=== PATIENT | male | born 1990 | race Caucasian/White ===

== ENCOUNTER 2018-02-09 18:45 | Emergency (ER) | payer OTHER, SELFPAY ==
[2018-02-09 18:46] VITALS: PULSE 133; RESP 13; O2SAT 98
[2018-02-09 18:47] VITALS: BP 130/69; PULSE 135; RESP 18; TEMP 39.2; O2SAT 98; BMI 26.6
--- NOTE | 2018-02-09 18:47 | ED.RN ---
NO OLD EKGS IN MUSE
--- NOTE | 2018-02-09 19:03 | EKG12_ITS ---
Test Reason : CP Blood Pressure : / mmHG Vent. Rate : 130 BPM Atrial Rate : 130 BPM P-R Int : 160 ms QRS Dur : 090 ms QT Int : 298 ms P-R-T Axes : 031 054 027 degrees QTc Int : 438 ms Sinus tachycardia Otherwise normal ECG Confirmed by ISRRAEL PERRY, LONG ([id number]), editor farm journal NANDINI ASHLEY ([id number]) on 02/11/2018 2:14:46 PM Referred By: BRITTANY Confirmed By:LONG ARCOS MD
--- NOTE | 2018-02-09 19:07 | ED.DCSUM_ITS ---
- ER Visit Summary Date of Service: 02/09/18 Chief Complaint: Chest pain and cough History of Present Illness: The patient is a [address] Avitia. Reports that he has left-sided chest pain again 830 this morning. Is a sharp, constant pain. 5 out of 10 currently and 10 out of 10 at worst. It is decreased with laying down or sitting down. Is worsened by walking around. Reports he has a cough that began at 10:00 this morning. Is nonproductive. Reports that he has a fever that began approximately 1:00 this afternoon. He denies any sore throat. Complains of a headache is 3 out of 10 severity. He has had similar headaches previously. He also complains of diffuse myalgias. Physical Examination: Vitals: 102.5, 130/69, 135, 18, 100% on room air which is not hypoxic. General: Well-nourished and well-developed. Head: Normocephalic atraumatic. Neck: Supple, no lymphadenopathy. No JVD. Nontender. Pharyngeal erythema. No tonsillar exudate or enlargement. No peritonsillar abscess. Cardiovascular: Tachycardic regular rhythm. No murmurs. Respiratory: No respiratory distress. Clear to auscultation bilaterally. Chest is nontender. Abdominal: Soft, nontender, nondistended, normal bowel sounds. No guarding, rebound, or peritoneal signs. Back: Nontender. Extremities: Nontender, no edema. Skin: Normal color, no rash. Neurologic: Alert and oriented ?3. Cranial nerves II through XII are intact. Normal strength and sensation. Psych: Normal affect. Test Results: EKG is sinus tachycardia [address] changes. CBC is remarkable for a white count of 13.8 with 85 segmented neutrophils and 11 lymphocytes. Chem-7 is normal. Chest x-ray is normal. Lactic acid is 1.4. Influenza is negative. Emergency Department Course and Treatment: Patient had an IV placed. He is given a liter normal saline. He was given Toradol IV and Zofran IV. Is given Tylenol p.o. He is resting comfortably. On repeat exam patient feels much improved. Treatment Plan: Patient will be discharged symptomatic care. Push fluids. Alternate Tylenol and ibuprofen. Follow-up with his primary care physician in 1 week if not improving. Return to the emergency department for any worsening symptoms. Disposition: To home in improved and stable condition. Impression: 1. URI. This note was generated with [employer] dictation software. It may contain incorrect words, spelling, and punctuation that were not noted in review of the chart prior to signing ED Disposition - Plan for ED Patient: Disposition: Home or Assisted Living Chief Complaint: Chest Pain Instructions: ED Upper Resp Infec No Abx Tx Referrals: Bola Avitia [Primary Care Provider] - 1 Week if not improving
[2018-02-09 19:15] LABS: Absolute Lymphocyte Count 1.51 X10^3/ul (0.83-4.51); Absolute Neutrophil Count 11.7 X10^3/uL (2.0-7.7); Basophil# 0.03 X10^3/uL; Basophil% 0.2 % (0-1); Eosinophil# 0.01 X10^3/uL; Eosinophils% 0.1 % (0-5); Hematocrit 42.2 % (40-54); Hemoglobin 14.4 g/dl (13.0-16.5); Lymphocyte # 1.51 X10^3/ul (4.0); Mean Corp Hgb Conc 34.1 g/gl (32-36); Mean Corpuscular Hgb 29.9 pg (27.0-32.0); Mean Corpuscular Volume 87.6 fL (80-94); Mean Platelet Vol. 9.8 fl (6.2-12.0); Monocyte% 3.6 % (0-10); Neutrophil # 11.72 X10^3/uL (2.7-7.7); POSITIVE COUNT NO; POSITIVE DIFFERENTIAL NO; POSITIVE MORPHOLOGY NO; Platelet Count 288 K/mm3 (150-450); RBC Distribution Width CV 13.1 % (11.6-14.6); RBC Distribution Width SD 42.2 fl (35.1-43.9); Red Blood Count 4.82 M/mm3 (4.6-6.2); White Blood Count 13.8 K/mm3 (4.4-11.0)
[2018-02-09] MEDS: 0.9% Normal Saline 1,000 ML 999 ML IV (19:15)
[2018-02-09] MEDS: Ketorolac 30 MG/ML Syringe IV (19:16)
[2018-02-09] MEDS: Ondansetron ODT 4 MG Tablet PO (19:16)
[2018-02-09] MEDS: Acetaminophen 500 MG Tablet 1000 MG PO (19:16)
--- NOTE | 2018-02-09 19:20 | RAD_ITS ---
STUDY: X-RAY CHEST REASON FOR EXAM: Male, 27 years old. Back pain. TECHNIQUE: Single frontal view of the chest. COMPARISON: None. FINDINGS: The lungs are clear and expanded. There is no demonstrated pleural abnormality. Normal size heart. Normal mediastinum and chandni. Normal visualized pulmonary arteries. Normal visualized aortic arch and descending thoracic aorta. Normal visualized thoracic spine. Normal visualized ribs, clavicles, and shoulders. There is no demonstrated abnormality of the visualized soft tissue structures of the upper abdomen. RAD/Chest PA and Lateral IMPRESSION: No acute cardiopulmonary process. Electronically Signed: Lesa Matthews MD at 19:46 EDT Tel , Service support ,
[2018-02-09 19:28] LABS: Anion Gap 8 (5-15); BUN 14 mg/dL (7-18); Calcium,Total 9.6 mg/dL (8.5-10.1); Chloride 105 mmol/L (98-107); Creatinine, Serum 0.88 mg/dL (0.70-1.30); EST Glomerular Filtration Rate 110 mL/min (>60); Est Glom Filt Rate - Afr Amer 133 mL/min (>60); Estimated Creatinine Clearance 120.91 ml/min; Glucose 101 mg/dL (74-106); Potassium 3.8 mmol/L (3.5-5.1); Sodium Level 137 mmol/L (136-145)
[2018-02-09 19:57] VITALS: BP 107/63; PULSE 119; RESP 27; O2SAT 93
[2018-02-09 20:07] LABS: Lactic Acid 1.4 mmol/L (0.4-2.0)
[2018-02-09 20:56] VITALS: TEMP 37.3
[2018-02-09 21:32] VITALS: PULSE 70; RESP 14; O2SAT 99
== END 2018-02-09 21:36 | disposition home or self-care (01) ==
LOC: ED 20:40
PROVIDERS: Emergency Provider Emergency Medicine
DX: J06.9 Acute upper respiratory infection, unspecified (principal); K21.9 Gastro-esophageal reflux disease without esophagitis; F32.9 Major depressive disorder, single episode, unspecified; Z79.899 Other long term (current) drug therapy; Z72.0 Tobacco use
CPT/HCPCS: 71046; 80048; 83605; 85025; 87804; 93005; 96361; 96374; 99284; J7030

== ENCOUNTER 2023-04-21 22:53 | Emergency (ER) | payer BC, SELFPAY ==
[2023-04-21 22:53] VITALS: BP 177/98; PULSE 103; RESP 18; TEMP 36.9; O2SAT 100; BMI 28.6
--- NOTE | 2023-04-21 23:01 | CT_ITS ---
EXAM: CT ABDOMEN AND PELVIS WITHOUT INTRAVENOUS CONTRAST CLINICAL INDICATION: hematuria TECHNIQUE: Helically acquired images were obtained of the abdomen and pelvis without intravenous contrast. CTDIvol = ( 8.89 ) mGy, DLP = ( 463.96 ) mGycm This CT exam was performed using one or more of the following dose reduction techniques: automated exposure control, adjustment of the mA and/or kV according to patient size, and/or use of iterative reconstruction technique. COMPARISON: No relevant prior studies available. FINDINGS: LOWER THORAX: Unremarkable. Lung bases are clear. No cardiomegaly. No significant pericardial effusion. ABDOMEN: LIVER: Unremarkable. Homogeneous. GALLBLADDER AND BILE DUCTS: Contracted gallbladder. No calcified gallstones. No gallbladder distention or wall edema. No intra- or extrahepatic biliary ductal dilation. PANCREAS: Unremarkable. No focal cystic mass. SPLEEN: Unremarkable. Normal size without focal cystic or solid mass. ADRENALS: Unremarkable. No nodules. KIDNEYS AND URETERS: Kidneys are normal with no hydronephrosis. 8 mm nonobstructing calyceal calculus involving the left renal pelvis. No other renal abnormalities. Normal renal size and position. STOMACH AND BOWEL: Distal colonic diverticulosis but no acute diverticulitis. No colitis or bowel obstruction. PELVIS: APPENDIX: No evidence of acute appendicitis. BLADDER: Decompressed bladder bladder appearance which is otherwise unremarkable. REPRODUCTIVE: Unremarkable as visualized. No mass. ABDOMEN and PELVIS: INTRAPERITONEAL SPACE: Unremarkable. No free air or free fluid. BONES/JOINTS: Unremarkable. No suspicious lytic or blastic abnormality. SOFT TISSUES: Small fat-containing right inguinal hernia. VASCULATURE: Unremarkable. Abdominal aorta is non-dilated. LYMPH NODES: Unremarkable. No enlarged lymph nodes. CT/Abdomen/Pelvis without Cont IMPRESSION: 1. 8 mm nonobstructing calyceal calculus involving the left renal pelvis. 2. No acute or inflammatory disease or bowel obstruction. Electronically Signed: Walter Marrero MD at 1:02 EST ,
--- NOTE | 2023-04-21 23:02 | EX.ED.DYSGE1 ---
HPI History of Present Illness Chief Complaint: Complaint Detail of Chief Complaint: Hematuria Informant: patient Onset/Context/Timing Onset: Today Narrative Narrative: Patient presents secondary to hematuria. He denies any dysuria or frequency but did note hematuria this evening. No clots noted. He reports mild pressure sensation over his bladder. He does have a history of kidney stone but states this does not feel similar. He does report he had a similar episode of hematuria 2 weeks ago when he was in [place]. He drank a lot of water and the urine cleared so he never followed up. When it recurred tonight he felt he should be evaluated. [facility] Medical History Depression Hx of gastroesophageal reflux (GERD) Home Medications pantoprazole 40 mg tablet,delayed release 40 mg PO DAILY 02/09/18 [History Last Taken Unknown] sertraline 100 mg tablet (Zoloft) 100 mg PO DAILY 02/09/18 [History Last Taken Unknown] Allergy/AdvReac Type Severity Reaction Status Date / Time No Known Allergies Allergy Verified 04/21/23 22:53 Social History Smoking Status: Current every day smoker tobacco type: cigarettes ROS ROS ED Constitutional Constitutional ED: Denies chills or fever(s) Eyes Eyes: Denies discharge from eye(s) ENT ENT ED: Denies discharge from eye(s) or sore throat Cardiovascular Cardiovascular: Denies chest pain or palpitations Respiratory/Chest Respiratory/Chest: Denies cough or dyspnea Gastrointestinal Gastrointestinal: Reports abdominal pain; Denies diarrhea, nausea or vomiting Genitourinary Genitourinary ED: Reports hematuria; Denies difficulty urinating or dysuria Musculoskeletal Musculoskeletal: Denies back pain or extremity pain Integumentary Denies Abrasions or rash Neurologic Neurologic: Denies headache(s) or weakness Psychiatric Psychiatric: Denies anxiety or depression Allergic/Immunologic Allergic/Immunologic ED: Denies lip swelling or urticaria EXAM Physical Exam Const Vital Signs: 04/21/23 22:53 Temperature 98.5 F Temperature Source Temporal Pulse Rate 103 H Respiratory Rate 18 Blood Pressure 177/98 H Blood Pressure Mean 124 Pulse Ox 100 Positive well nourished and well developed General Appearance ED: well developed HEENT Reports moist mucous membranes Eyes EOMs intact bilaterally Chest Wall inspection of chest normal and palpation of chest normal Resp normal respiratory effort and clear to auscultation bilaterally Cardio regular rate and regular rhythm GI GI Narrative: Abdomen soft with no focal tenderness. Hypoactive bowel sounds. Extremity normal to inspection Neuro oriented x3 and no sensory deficits noted Motor Exam: strength 5/5 throughout Psych mental status grossly normal Skin no rashes or lesions noted MDM MDM MDM Narrative Medical decision making narrative: IV line established. Labwork obtained to evaluate for leukocytosis, anemia, and electrolyte derangement. Urinalysis obtained to evaluate for infection/hematuria. CT flank obtained to evaluate for renal stone, renal cyst, renal mass, bladder mass. History & Record Review Discussion w/independent historian: Patient Lab Data Attestation: I reviewed the patient's lab results. Labs: Laboratory Results - last 24 hr 04/21/23 04/21/23 23:15 23:20 WBC 12.7 H RBC 4.86 Hgb 15.0 Hct 44.0 MCV 90.5 MCH 30.9 MCHC 34.1 RDW Std Deviation 41.7 RDW Coeff of [place] 12.7 Plt Count 339 MPV 9.9 Immature Gran % (Auto) 0.300 Neut % (Auto) 54.1 Lymph % (Auto) 35.3 [place] % (Auto) 7.1 Eos % (Auto) 2.5 Baso % (Auto) 0.7 Absolute Neuts (auto) 6.9 Absolute Lymphs (auto) 4.50 Nucleated RBC % 0 Sodium 136 Potassium 3.7 Chloride 104 Carbon Dioxide 28.0 Anion Gap 4 L BUN 13 Creatinine 1.03 Estim Creat Clear Calc 98.69 Est GFR (MDRD) Af Amer 107 Est GFR (MDRD) Non-Af 88 BUN/Creatinine Ratio 12.6 Glucose 162 H Calcium 9.0 Urine Color SEE COMMENT BELOW Urine Clarity Cloudy Urine pH 6.0 Ur Specific [place] 1.015 Urine Protein 30 H Urine Glucose (UA) Normal Urine Ketones 5 H Urine Occult Blood 250 H Urine Nitrite Negative Urine Bilirubin Negative Urine Urobilinogen Normal Ur Leukocyte Esterase 25 H Urine RBC > 100 SEEN Urine WBC 5-10 SEEN Ur Squamous Epith Cells 0 SEEN Urine Bacteria 0 SEEN Urine Mucus 0 SEEN Radiography Diagnostic Testing: Clinical Impression(s) from Imaging Studies Abdomen/Pelvis CT 04/21/23 23:01 IMPRESSION: 1. 8 mm nonobstructing calyceal calculus involving the left renal pelvis. 2. No acute or inflammatory disease or bowel obstruction. Electronically Signed: Walter Marrero MD at 1:02 EST , Treatment and Re-Evaluation :: CBC reveals white count 12.7 with normal differential. Hemoglobin normal at 15. Chemistry studies unremarkable with normal renal function. Glucose is 162. Urinalysis does reveal greater than 100 red cells with 5-10 white cells. 0 bacteria and no nitrites noted. CT the flank reveals an 8 mm nonobstructing calyceal calculus at the left renal pelvis. No evidence of acute or inflammatory disease. Test results are discussed with the patient. I advised him that I think the stone may be moving in a ball-valve pattern causing intermittent obstruction and irritation to cause bleeding, or the stone may be breaking off in small pieces and he is passing small pieces down the ureter that is irritating and causing bleeding. At this time there is no evidence of obstruction or hydronephrosis. His renal function is normal. He will be referred to urology for outpatient follow-up. Return instructions given. Discharge Plan Triage Chief Complaint: Complaint ED Provider: Terri Hatch Dx/Rx/DC Orders Clinical Impression: Hematuria, Calculus, renal Instructions: ED Hematuria, ED Kidney Stone Undescended No ... Prescriptions: No Action sertraline [Zoloft] 100 MG tablet 100 mg PO DAILY pantoprazole 40 MG tablet 40 mg PO DAILY Primary Care Provider: Care Physician,No Primary Referrals: Abdoulaye Lopez MD [Med Staff - Active Staff] - 1-2 Weeks Bola Avitia [[facility]] - Disposition Disposition: Home, Self Care
[2023-04-21 23:25] LABS: Bacteria 0 SEEN /hpf (None Seen); Mucous, Urine 0 SEEN /hpf (<or=2+); Squamous Epithelial Cells - UA 0 SEEN /hpf (0-5)
[2023-04-21] MEDS: 0.9% Normal Saline (1000mL) 1,000 ML 150 ML IV (23:26)
[2023-04-21 23:35] LABS: Glucose, Dipstick Normal (Normal); Ketone-Dipstick 5 mg/dl (Negative); Leukocyte Esterase-Dipstick 25 /ul (Negative); Nitrite-Dipstick Negative (Negative); Occult Blood-Urine 250 /ul (Negative); Protein-Dipstick 30 mg/dl (Negative); Specific Gravity, Urine 1.015 (1.002-1.030); Urine Bilirubin Dipstick Negative (Negative); Urine Clarity Cloudy (Clear); Urine Urobilinogen Normal (Normal)
[2023-04-21 23:54] LABS: Absolute Neutrophil Count 6.9 X10^3/uL (2.0-7.7); Basophil# 0.09 X10^3/uL; Basophil% 0.7 % (0-1); Eosinophil# 0.32 X10^3/uL; Eosinophils% 2.5 % (0-5); Lymphocyte % 35.3 % (19-41); Mean Corp Hgb Conc 34.1 g/dL (32-36); Mean Corpuscular Hgb 30.9 pg (27.0-32.0); Mean Corpuscular Volume 90.5 fL (80-94); Mean Platelet Vol. 9.9 fl (6.2-12.0); Monocyte# 0.91 X10^3/uL; Monocyte% 7.1 % (0-10); NRBC Flagged by Analyzer 0 % (0-5); Neutrophil # 6.88 X10^3/uL (2.7-7.7); Neutrophil % 54.1 % (47-70); Platelet Count 339 K/mm3 (150-450); RBC Distribution Width CV 12.7 % (11.6-14.6); RBC Distribution Width SD 41.7 fl (35.1-43.9); Red Blood Count 4.86 M/mm3 (4.6-6.2); White Blood Count 12.7 K/mm3 (4.4-11.0)
[2023-04-21 23:57] LABS: Anion Gap 4 (5-15); BUN 13 mg/dL (7-18); BUN/Creat Ratio 12.6 RATIO (10-20); Chloride 104 mmol/L (98-107); Creatinine, Serum 1.03 mg/dL (0.70-1.30); EST Glomerular Filtration Rate 88 mL/min (>60); Est Glom Filt Rate - Afr Amer 107 mL/min (>60); Estimated Creatinine Clearance 98.69 ml/min; Glucose 162 mg/dL (74-106); Potassium 3.7 mmol/L (3.5-5.1); Sodium Level 136 mmol/L (136-145)
[2023-04-21 23:57] LABS: Color, Urine SEE COMMENT BELOW (Yellow)
[2023-04-22 00:01] LABS: Red Blood Cells-Urine > 100 SEEN /hpf (0-5); White Blood Cells 5-10 SEEN /hpf (0-5)
[2023-04-22 01:18] VITALS: BP 109/75; PULSE 63; RESP 14; O2SAT 99
== END 2023-04-22 01:24 | disposition home or self-care (01) ==
PROVIDERS: Emergency Provider Emergency Medicine; Visit Provider Emergency Medicine
DX: N20.0 Calculus of kidney (principal); F17.210 Nicotine dependence, cigarettes, uncomplicated; R31.9 Hematuria, unspecified; F32.A Depression, unspecified; K21.9 Gastro-esophageal reflux disease without esophagitis; Z79.899 Other long term (current) drug therapy
CPT/HCPCS: 74176; 80048; 81001; 85025; 96360; 99283; J7030; A4216

== ENCOUNTER → 2023-04-28 | Outpatient (CLI) | payer BC, SELFPAY ==
--- NOTE | 2023-04-28 11:14 | RAD_ITS ---
STUDY: X-RAY - ABDOMEN/PELVIS REASON FOR EXAM: Male, 32 years old. Renal calculi. TECHNIQUE: Single AP view of the abdomen / pelvis. COMPARISON: CT of the abdomen and pelvis dated April 21, 2023. FINDINGS: Normal visualized lung bases. Normal bowel gas pattern. Moderate amount of feces in the colon. 6 mm in diameter calcification projected over the left kidney. Normal soft tissue structures. Normal visualized osseous structures. RAD/Abdomen Single View IMPRESSION: 6 mm in diameter calcification projected over the left kidney. No acute finding. Electronically Signed: Patrick Godfrey MD at 10:48 EST ,
== END | disposition home or self-care (01) ==
LOC: RAD 11:13
PROVIDERS: Referring Provider Urology; Visit Provider Urology
DX: N20.0 Calculus of kidney (principal)
CPT/HCPCS: 74018

== ENCOUNTER → 2023-06-19 | Outpatient (CLI) | payer BC, SELFPAY ==
--- NOTE | 2023-06-19 10:20 | RAD_ITS ---
STUDY: X-RAY - ABDOMEN/PELVIS REASON FOR EXAM: Male, 32 years old. KIDNEY STONE TECHNIQUE: Single AP view of the abdomen / pelvis. COMPARISON: 04/28/2023, CT scan 04/21/2023. FINDINGS: Previously seen 6 mm stone overlying the left renal shadow is not clearly seen on this exam, suggesting it has either passed or is obscured by colon contents. No other suspicious calcifications. No definite abnormality. There is an unremarkable bowel gas pattern. There is no demonstrated free abdominal air. Electronically Signed: Lamin Lisa MD at 17:41 EST , RAD/Abdomen Single View IMPRESSION: undefined
--- OUTSIDE RECORDS SUMMARY | 2023-06-19 10:32 | XMS RPT_ITS | CCD ---
Author Name Unknown Address [address] [place] [address] Organization [facility] Care Team Providers Care Manager Medicare Marketing Name Role Phone NO REFERRING Unavailable Unavailable LUL SESAY Unavailable Unavailable LUL SESAY Unavailable Unavailable Unavailable Primary Care Provider Unavailabl e Medications Current Medications Medication Drug Class(es) Dates Sig (Normalized) Sig (Original) pantoprazole 40 mg delayed release oral tablet (1 source) Proton Pump Inhibitor Start: 04-13-2020 take 1 tablet by mouth once daily before breakfast pantoprazole (PROTONIX) 40 MG tablet Take 1 tablet by mouth every morning (before breakfast) 30 tablet 5 04/13/2020 Active Problems Active Problems Problem Classification Problem Date Documented Date Episodic/Chronic Esophageal disorders (1 source) Gastroesophageal reflux disease without esophagitis; Translations: [Gastroesophageal reflux disease without esophagitis] Onset: 04-13-2020 04-13-2020 Chronic Other male genital disorders (1 source) Testicular mass; Translations: [Mass of left testicle] Episodic Past or Other Problems Problem Classification Problem Date Documented Da te Episodic/Chronic Headache, including migraine (1 source) Headache; Translations: [Headache] Onset: 11-12-2016 Episodic Other connective tissue disease (2 sources) Pain in right upper arm; Translations: [PAIN IN RIGHT UPPER ARM] Onset: 02-04-2016 Episodic Other gastrointestinal disorders (1 source) Heartburn; Translations: [Heartburn] Onset: 11-12-2016 Episodic Skin and subcutaneous tissue infections (1 source) Cutaneous abscess of right upper limb; Translations: [CUTANEOUS ABSCESS RIGHT] Onset: 02-04-2016 Episodic Results Test Name Value Interpretation Reference Range Facil ity Encounters Encounter Date Encounter Type Care Provider Facility Start: 04-18-2020 End: 04-18-2020 Subsequent hospital visit by physician Brian Waddell Work Phone: [facility] US Procedures Date Procedure Procedure Detail Performing Clinician Start: 04-18-2020 Us scrotum & contents E kortneyjuan Landrydonnaedna Work Phone: Plan of Treatment Date Care Activity Detail Author Start: 01-25-2020 Influenza vaccination Flu vaccine (# 1) [place], [place] Start: 2008 DTaP/Tdap/Td vaccine (1 - Tdap) DTaP/Tdap/Td vaccine (1 - Tdap) [place] Start: 2004 HIV screening HIV screen [place], [place] Start: 1990 Varicella vaccine (1 of 2 - 2-dose childhood series) Varicella vaccine (1 of 2 - 2-dose childhood series) [place] Payers Date Payer Category Payer Unknown [employer] [id number] 2020-Present [phone] [address] [place] [address] [id number] Self-pay Social History Date Type Detail Facility Start: 04-13-2020 [facility] [place] History of tobacco use Cigarette Smoker [place] Start: 04-13-2020 Tobacco use and exposure Never used [place] Start: 04-13-2020 Alcohol intake Current drinke r of alcohol (finding) [place] Start: 04-13-2020 History SDOH Alcohol Frequency 2 [place] Start: 04-13-2020 History SDOH Alcohol Std Drinks 1 [place] Start: 04-13-2020 History SDOH Social Connections Phone 5 [place] Start: 04-13-2020 History SDOH Social Connections Jain 3 [place] Sex Assigned At Not on file [place] Progress note 05-20-2021 Note Date & Type Note Facility 05-20-2021 Note HNO ID: [id number] Author: Bg Morales APRN.[employer] Service: ? Author Type: Nurse Practitioner Type: Progress Notes Filed: 05/20/2021 1:00 PM Note Text: Subjective HPI Nontoxic-appearing patient presents urgent care chief complaint COVID-19 concerns. Duration of symptoms 2 days. Associated symptoms of headaches body aches nausea slight cough. Patient states was in contact with individuals who tested positive for COVID-19. Was in close contact. Denies history of COVID-19 is vaccine against COVID-19. No OTC medication use recently. Denies any high fevers productive cough chest pain shortness of breath pleuritic pain hemoptysis nausea vomiting abdominal pain or change in bowel or bladder habits. Past medical history prescription medication use allergies reviewed. .Patient presents with: Headache: with bodyaches, nausea AND fatigue x 2 days PAST MEDICAL HISTORY Diagnosis Date - GERD without esophagitis 07/15/2017 PAST SURGICAL HISTORY Procedure Laterality Date - EGD 2017 ALLERGIES Patient has no known allergies. MEDICATIONS pantoprazole DR (PROTONIX) 40 mg tablet Take 1 tablet by mouth daily before breakfast. Take on empty stomach, 1/2 hr before meal. meloxicam (MOBIC) 15 mg tablet Take 1 tablet by mouth once daily. With food. cyclobenzaprine (FLEXERIL) 10 mg tablet Take 1 tablet by mouth three times daily as needed. rizatriptan (MAXALT PULL OUT OPERATOR) 10 mg disintegrating tablet Take 1 tablet by mouth as needed. May repeat in 2 hours if needed sertraline (ZOLOFT) 100 mg tablet Take 1 tablet by mouth once daily. FAMILY HISTORY Problem Relation Age of Onset - other (mental health issues) Father - COPD Maternal Grandmother Social History Tobacco Use - Smoking status: Current Some Day Smoker Types: Cigars - Smokeless tobacco: Never Used Substance Use Topics - Alcohol use: No - Drug use: No BP 128/82 Pulse 114 Temp 37.8 ?C (100.1 ?F) (Left Tympanic) Resp 16 Wt 83.2 kg (183 lb 6.4 oz) SpO2 98% BMI 28.72 kg/m? Hr 95 Review of Systems Constitutional: Positive for chills, fever and malaise/fatigue. HENT: Positive for congestion and sore throat. Negative for ear discharge, ear pain and sinus pain. Eyes: Negative for blurred vision, pain, discharge and redness. Respiratory: Positive for cough. Negative for hemoptysis, sputum production, shortness of breath, wheezing and stridor. Cardiovascular: Negative for chest pain. Gastrointestinal: Negative for abdominal pain, diarrhea, nausea and vomiting. Musculoskeletal: Positive for myalgias. Skin: Negative for itching and rash. Neurological: Negative for dizziness and headaches. Objective Physical Exam Constitutional: General: He is not in acute distress. Appearance: He is not diaphoretic. HENT: Head: Normocephalic. Mouth/Throat: Mouth: Mucous membranes are moist. Pharynx: Oropharynx is clear. No oropharyngeal exudate or posterior oropharyngeal erythema. Eyes: Conjunctiva/sclera: Conjunctivae normal. Pupils: Pupils are equal, round, and reactive to light. Cardiovascular: Rate and Rhythm: Normal rate and regular rhythm. Heart sounds: Normal heart sounds. Pulmonary: Effort: Pulmonary effort is normal. No tachypnea, accessory muscle usage or respiratory distress. Breath sounds: Normal breath sounds. No stridor. Abdominal: Palpations: Abdomen is soft. Tenderness: There is no abdominal tenderness. Musculoskeletal: Cervical back: Normal range of motion and neck supple. No rigidity or tenderness. Lymphadenopathy: Cervical: No cervical adenopathy. Skin: General: Skin is warm and dry. Neurological: Mental Status: He is alert and oriented to person, place, and time. ASSESSMENT/PLAN: 1. Viral illness - ICD9: 079.99, ICD10: B34.9 - COVID WITH FLUA+B, ROUTINE COVID-19 test ordered results pending alternative diagnosis discussed home quarantining recommended work note provided. Red flags for prompt reevaluation discussed. Patient was educated on supportive therapies. Patient will follow up with primary care provider as needed. Patient was instructed to immediately proceed to emergency room for any new, worsening, or symptoms lasting longer than anticipated. The patient's clinical presentation is otherwise unremarkable at this time. Based on exam and clinical finding, the patient is stable for discharge. Plan of care was discussed with patient. Patient verbalizes understanding and agrees to plan of care. This note was generated using [employer] software. It may contain errors in wording, punctuation, or spelling. Bg Morales APRN.[facility] Summary Purpose Family History No Family History Records FoundNo Family History Records FoundNo Family History Records FoundNo Family History Records Found Advance Directives No Advanced Directives Records FoundNo Advanced Directives Records FoundNo Advanced Directives Records FoundNo Advanced Directives Records Found Reason for Referral Status Reason Specialty Diagnoses / Procedures Referre d By Contact Referred To Contact [facility] Diagnoses Mass of left testicle Procedures US SCROTUM AND TESTICLES Brian Waddell, [address] [id number] Assessments Diagnosis Mass of left testicle Additional Source Comments (unrecognized sect ion and content) No Status Records FoundNo Status Records FoundNo Status Records FoundNo Status Records Found INFORMATION SOURCE (unrecogn ized section and content) DATE CREATED AUTHOR AUTHOR'S ORGANIZ ATION 11/19/2017 [facility] DATE CREATED AUTHOR AUTHOR'S ORGANIZ ATION 04/24/2020 [facility] DATE CREATED AUTHOR AUTHOR'S ORGANIZ ATION 05/22/2021 [facility] FOR RECORDS PERTAINING TO PATIENTS WHO ARE OR HAVE BEEN ENROLLED IN A CHEMICAL DEPENDENCY/SUBSTANCEABUSE PROGRAM, SOME INFORMATION MAY BE OMITTED. This clinical summary was aggregated from multiple sources. Caution should be exercised in using it in the provision of clinical care. This summary normalizes information from multiple sources, and as a consequence, information in this document may materially change the coding, format and clinical context of patient data. In addition, data may be omitted in some cases. CLINICAL DECISIONS SHOULD BE BASED ON THE PRIMARY CLINICAL RECORDS. [facility]. provides no warranty or guarantee of the accuracy or completeness of information in this document.
== END | disposition home or self-care (01) ==
PROVIDERS: Referring Provider Urology; Visit Provider Urology
DX: N20.0 Calculus of kidney (principal)
CPT/HCPCS: 74018; 82360

== ENCOUNTER 2024-07-28 14:41 | Emergency (ER) | payer BC, SELFPAY ==
[2024-07-28 14:42] VITALS: BP 135/91; PULSE 118; RESP 16; TEMP 36.5; O2SAT 97; BMI 26.6
--- NOTE | 2024-07-28 15:55 | EX.ED.DYSGE1 ---
HPI History of Present Illness Chief Complaint: Diarrhea [facility] Medical History Depression Hx of gastroesophageal reflux (GERD) Home Medications ?Medication ?Instructions ?Recorded ?Last Taken ?Type pantoprazole 40 mg tablet,delayed 40 mg PO DAILY 02/09/18 Unknown History release sertraline 100 mg tablet (Zoloft) 100 mg PO DAILY 02/09/18 Unknown History Allergy/AdvReac Type Severity Reaction Status Date / Time No Known Allergies Allergy Verified 07/28/24 14:43 Social History Smoking Status: Current every day smoker tobacco type: cigarettes EXAM Physical Exam Const Vital Signs: 07/28/24 14:42 07/28/24 17:16 Temperature 97.7 F L Temperature Source Temporal Pulse Rate 118 H 101 H Respiratory Rate 16 18 Blood Pressure 135/91 H 135/95 H Blood Pressure Mean 105 108 Pulse Ox 97 98 Oxygen Delivery Method Room Air Room Air [facility] Narrative Medical decision making narrative: HISTORY OF PRESENT ILLNESS: 33-year-old male presents with concern for diarrhea. He notes has been ongoing for the past 48 hours. He notes he started getting heartburns he came in. No blood in his stool. No recent travel, sick contacts or antibiotics noted REVIEW OF SYSTEMS: Pertinent positives: Diarrhea, heartburn, nausea Pertinent negatives: Vomiting PHYSICAL EXAM: Nursing triage notes reviewed, Vital signs reviewed Constitutional: please see mdm HENT: MMM Eyes: Pupils equal round and reactive to light, Extraocular muscles intact Neck: No stridor, no JVD, full neck ROM Lungs: Clear to auscultation, No wheezing or rales. No increased work of breathing, no conversational dyspnea, no accessory muscle use, no nasal flaring. No respiratory distress noted Heart: Regular rate and rhythm, No murmurs, No rubs and No gallops, 2+ distal pulses (radial, femoral, posterior tibial) in all extremities Abdomen: Soft, there is no tenderness, rigidity, rebound or guarding, no obvious peritoneal signs, no palpable pulsatile abdominal masses, no auscultated abdominal bruit : No CVAT Extremities: No edema Neuro: No new focal neurological deficits, cranial nerves II through XII intact, 5/5 strength in all present extremities. Intact sensation to light touch in all present extremities, 2+ reflexes bilateral patella tendons. Skin: No rash or lesions noted MEDICAL DECISION MAKING: Chief Complaint: Diarrhea, heartburn External records reviewed: Reviewed prior imaging studies: Reviewed CT scan from 2022 which showed no acute inflammatory disease or bowel obstruction Factors affecting care: Depression, GERD Social determinants of health: none History obtained from others: none Consults: none MDM Narrative: The patient was initially tachycardic otherwise hemodynamically stable afebrile and nontoxic-appearing. Abdominal exam Triage labs were placed including CBC and BMP, IV was started per triage protocol secondary to poor departmental dynamics including high volume high acuity. I initially evaluate the patient proxy 1 hour and 15 minutes after his initial arrival. I considered the following differential diagnosis: Dehydration, electrolyte disturbance, invasive diarrhea ALL IMAGES (IF OBTAINED) HAVE BEEN PERSONALLY REVIEWED AND INTERPRETED BY MYSELF. CBC with leukocytosis suggestive of system inflammation, no anemia or thrombocytopenia BMP with metabolic acidosis likely secondary to dehydration, noted elevated anion gap likely secondary to ketoacidosis from poor p.o. intake LFTs show no evidence of hepatobiliary pathology. Lipase is wnl indicating no pancreatic inflammation. Patient here with tolerating p.o. he is appropriate discharge home with Zofran. Likely from viral gastroenteritis. Encouraged copious p.o. intake. Give strict return precautions. All questions answered. The patient and/or family, caregivers express understanding. The patient and/or family, caregivers agrees with the plan. Shared decision making: I will have a discussion with the patient and or visitors regarding risk/benefits of further testing or admission. They will be made aware of of the risk/benefits inherent in this decision they will be given the opportunity to voice understanding. Total critical care time today provided was at least 0 minutes. This excludes separately billable procedures. Critical care time (if documented) is secondary to the patient having high probability of clinically significant/life threatening deterioration in the patient's condition which required my urgent intervention. Impression: 1. Diarrhea 2. Dehydration 3. Metabolic acidosis Dispo: Discharge home This note was generated with [employer] dictation software. It may contain incorrect words, spelling, and punctuation that were not noted in review of the chart prior to signing. Lab Data Labs: Laboratory Results - last 24 hr 07/28/24 16:22 WBC 13.2 H RBC 5.42 Hgb 16.5 Hct 46.5 MCV 85.8 MCH 30.4 MCHC 35.5 RDW Std Deviation 38.8 RDW Coeff of Cyndee 12.4 Plt Count 322 MPV 9.2 Immature Gran % (Auto) 0.300 Neut % (Auto) 75.0 H Lymph % (Auto) 16.9 L Bath % (Auto) 6.5 Eos % (Auto) 0.8 Baso % (Auto) 0.5 Absolute Neuts (auto) 9.9 H Absolute Lymphs (auto) 2.23 Nucleated RBC % 0 Sodium 134 Potassium 4.1 Chloride 102 Carbon Dioxide 16.4 L Anion Gap 16 H BUN 14 Creatinine 0.78 Estim Creat Clear Calc 129.10 Est GFR (MDRD) Non-Af 120 BUN/Creatinine Ratio 18.1 Glucose 111 H Calcium 9.8 Total Bilirubin 0.25 Direct Bilirubin 0.11 AST 32 ALT 45 Alkaline Phosphatase 141 H Total Protein 8.4 Albumin 4.7 Globulin 3.7 Lipase 29 Discharge Plan Triage Chief Complaint: Diarrhea ED Provider: Aidan White Dx/Rx/DC Orders Prescriptions: No Action sertraline [Zoloft] 100 MG tablet 100 mg PO DAILY pantoprazole 40 MG tablet 40 mg PO DAILY Primary Care Provider: Care Physician,No Primary Referrals: Care Physician,No Primary [Primary Care Provider] - Print Language: Chinese
[2024-07-28 16:28] LABS: Absolute Lymphocyte Count 2.23 X10^3/uL (0.83-4.51); Absolute Neutrophil Count 9.9 X10^3/uL (2.0-7.7); Basophil# 0.07 X10^3/uL; Basophil% 0.5 % (0-1); Eosinophils% 0.8 % (0-5); Hematocrit 46.5 % (40-54); Hemoglobin 16.5 g/dL (13.0-16.5); Lymphocyte # 2.23 X10^3/ul (0.83-4.51); Lymphocyte % 16.9 % (19-41); Mean Corp Hgb Conc 35.5 g/dL (32-36); Mean Corpuscular Hgb 30.4 pg (27.0-32.0); Mean Corpuscular Volume 85.8 fL (80-94); Mean Platelet Vol. 9.2 fl (6.2-12.0); Monocyte# 0.86 X10^3/uL; Monocyte% 6.5 % (0-10); NRBC Flagged by Analyzer 0 % (0-5); Neutrophil # 9.93 X10^3/uL (2.7-7.7); Platelet Count 322 K/mm3 (150-450); RBC Distribution Width CV 12.4 % (11.6-14.6); RBC Distribution Width SD 38.8 fl (35.1-43.9); Red Blood Count 5.42 M/mm3 (4.6-6.2); White Blood Count 13.2 K/mm3 (4.4-11.0)
[2024-07-28] MEDS: 0.9% Normal Saline (1000mL) 1,000 ML 999 ML IV (16:34)
[2024-07-28 16:51] LABS: AST(SGOT) 32 U/L (<=37); Alanine Aminotransfer ALT/SGPT 45 U/L (<=46); Albumin, Serum 4.7 g/dL (3.5-5.0); Alkaline Phosphatase 141 U/L (40-129); Anion Gap 16 (5-15); BUN 14 mg/dL (4-19); BUN/Creat Ratio 18.1 RATIO (10-20); Bilirubin, Direct 0.11 mg/dL (0.00-0.30); Calcium,Total 9.8 mg/dL (7.6-11.0); Carbon Dioxide 16.4 mmol/L (21.0-32.0); Chloride 102 mmol/L (98-108); Creatinine, Serum 0.78 mg/dL (0.70-1.20); EST Glomerular Filtration Rate 120 (>60); Globulin 3.7 g/dL (2.2-4.2); Glucose 111 mg/dL (70-99); Lipase 29 U/L (13-75); Potassium 4.1 mmol/L (3.3-5.1); Protein, Total 8.4 g/dL (5.9-8.4); Sodium Level 134 mmol/L (133-145); Total Bilirubin 0.25 mg/dL (0.00-1.30)
[2024-07-28] MEDS: Famotidine 200 MG/20 ML MDV 20 MG in 0.9% Normal Saline (Pres. free 8 ML 300 MG IV (17:02)
[2024-07-28 17:16] VITALS: BP 135/95; PULSE 101; RESP 18; O2SAT 98
[2024-07-28 17:45] VITALS: BP 135/95; PULSE 101; RESP 18; TEMP 36.6; O2SAT 98
== END 2024-07-28 17:46 | disposition home or self-care (01) ==
PROVIDERS: Emergency Provider Emergency Medicine; Referring Provider Emergency Medicine; Visit Provider Emergency Medicine
DX: R19.7 Diarrhea, unspecified (principal); E86.0 Dehydration; E87.20 Acidosis, unspecified; K21.9 Gastro-esophageal reflux disease without esophagitis; F32.A Depression, unspecified; Z79.899 Other long term (current) drug therapy; F17.210 Nicotine dependence, cigarettes, uncomplicated
CPT/HCPCS: 80048; 80076; 83690; 85025; 96365; 99283; A4216